=== PATIENT | female | born 1945 | race American Indian/Alaskan Native ===

== ENCOUNTER 2016-07-31 14:52 | Emergency (ER) | payer MEDICARE, MEDICAID ==
[2016-07-31 15:24] VITALS: BP 146/65
[2016-07-31] MEDS ORDERED: KEFLEX PO ONE (18:58)
--- NOTE | 2016-07-31 18:59 | Emergency Department Report ---
ED Extremity Problem HPI - General Chief complaint: Extremity Injury, Lower Stated complaint: BI LATERAL FOOT INJURY/BROKEN TOENAIL Time Seen by Provider: 07/31/16 18:37 Source: patient Mode of arrival: Wheelchair Limitations: No Limitations - History of Present Illness Initial comments: PT c/o R toe injury on Friday at 1400. PT states she lost control of her power chair and her R foot hit a wall. PT states it knocked her Great toenail off. PT states this has happened before, last time was 3 years ago. PT states her doctor has been trying to get her into see Podiatry. PT states her toe did not bleed when the injury occurred. PT states she has been putting triple antibiotic ointment on her toe. PT States she has noticed some redness to her toe. PT states she has [place] at home for the pain. PT states that she is concerned for infection. MD Complaint: extremity pain Onset/Timin -: Gradual, days(s) Location: right, toe History of Same: Yes Severity scale (0 -10): 5 Quality: other (tender ) Consistency: constant Improves with: medication (helps with pain, not redness ) Worsens with: palpation Associated Symptoms: denies other symptoms, other (pt states she has HD in the am and she needs to go ) - Related Data Previous Rx's Medication Instructions Recorded Last Taken Type Cephalexin [Keflex] 500 mg PO Q6HR #40 capsule 07/31/16 Unknown Rx Allergies Allergy/AdvReac Type Severity Reaction Status Date / Time No Known Allergies Allergy Unverified 07/09/15 13:50 ED Review of Systems ROS: Stated complaint: BI LATERAL FOOT INJURY/BROKEN TOENAIL Other details as noted in HPI Comment: All other systems reviewed and negative Constitutional: denies: chills, fever Gastrointestinal: denies: nausea, vomiting Musculoskeletal: as per HPI Skin: as per HPI, change in color ED Past Medical Hx - Past Medical History Hx Hypertension: Yes Hx Diabetes: Yes Hx Renal Disease: Yes (HD - - Sat) Hx Arthritis: Yes - Surgical History Additional Surgical History: Right chest permacth - Social History Smoking Status: Never Smoker Substance Use Type: None - Medications Home Medications: Home Medications Medication Instructions Recorded Confirmed Last Taken Type Cephalexin [Keflex] 500 mg PO Q6HR #40 capsule 05/24/17 Unknown Rx ED Physical Exam - General Limitations: No Limitations General appearance: alert, in no apparent distress, obese - Head Head exam: Present: atraumatic, normocephalic - Eye Eye exam: Present: normal appearance. Absent: conjunctival injection - Neck Neck exam: Present: normal inspection, full ROM - Respiratory Respiratory exam: Present: other (R CW vascular access ). Absent: respiratory distress - Cardiovascular Cardiovascular Exam: Present: regular rate, normal rhythm - Extremities Exam Extremities exam: Present: other (best lower ext with thick skin and lymphedema ) - Expanded Lower Extremity Exam Right Lower Leg exam: Absent: tenderness Ankle exam: Absent: tenderness Foot/Toe exam: Present: tenderness (to the distal aspect of the R great toe), erythema (small amount of erythema. no drainage, no wound. ), nail avulsion (R great toe). Absent: swelling, laceration, amputation, puncture wound Neuro vascular tendon exam: Absent: pulse deficit, sensory deficit, extremity cold to touch, pallor, foot drop Gait: Positive: not tested/not observed (pt in power chair) - Neurological Exam Neurological exam: Present: alert, oriented X3 - Psychiatric Psychiatric exam: Present: normal affect, normal mood - Skin Skin exam: Present: warm, dry, intact ED Course Vital Signs 07/31/16 15:02 Temperature 98.3 F Pulse Rate 80 Respiratory 16 Rate Blood Pressure 146/65 O2 Sat by Pulse 98 Oximetry - Reevaluation(s) Reevaluation #1: 07/31/16 18:56 PT aware that her XR does not have a radiology read yet. PT states she has to leave. PT aware an antibiotic will be prescribed. PT given strict return precautions. PT has no questions at this time. - Pulse Oximetry Interpretation Digit-Finger Initial Pulse Oximetry Readin Actions Taken: none ED Medical Decision Making - Radiology Data Radiology results: image reviewed R foot - OA - Differential Diagnosis fracture, infection, nail avulsion Critical Care Time: No Critical care attestation.: If time is entered above; I have spent that time in minutes in the direct care of this critically ill patient, excluding procedure time. ED Disposition Clinical Impression: Injury of right great toe Qualifiers: Encounter type: initial encounter Qualified Code(s): S99.921A - Unspecified injury of right foot, initial encounter Disposition: DISCHARGED TO HOME OR SELFCARE Is pt being admited?: No Does the pt Need Aspirin: No Condition: Stable Instructions: Diabetic Foot Care (ED), Foot Contusion (ED) Additional Instructions: Follow up with PCP in 2-3 days Return to the ED if worsening or concerns Continue topical antibiotic ointment Follow up with podiatry Prescriptions: Cephalexin [Keflex] 500 mg PO Q6HR #40 capsule Referrals: PRIMARY CARE, [Primary Care Provider] - 3-5 Days Time of Disposition: 18:59
--- NOTE | 2016-07-31 20:02 | XRay Report ---
FINAL REPORT EXAM: XR FOOT 3 RT HISTORY: trauma/toenail pain TECHNIQUE: AP, lateral, and oblique portable views of the right foot PRIORS: None. FINDINGS: There is no evidence for acute fracture or dislocation. However, with the severe osteopenia identified, fracture lines can be obscured. No soft tissue swelling or radiopaque foreign bodies are seen. There is vascular calcifications soft tissues. Joint spaces are maintained. IMPRESSION: No acute soft tissue or bony abnormality noted. Severe bony osteopenia.
== END 2016-07-31 19:04 | disposition home or self-care (01) ==
LOC: ED 14:52
DX: S99.821A Other specified injuries of right foot, initial encounter (principal); E11.9 Type 2 diabetes mellitus without complications; I12.0 Hypertensive chronic kidney disease with stage 5 chronic kidney disease or end stage renal disease; N18.6 End stage renal disease; W07.XXXA Fall from chair, initial encounter; Y93.89 Activity, other specified; Y99.8 Other external cause status; Y92.89 Other specified places as the place of occurrence of the external cause
CPT/HCPCS: 99283